=== PATIENT | female | born 1950 | race Caucasian/White ===

== ENCOUNTER → 2023-09-21 | Outpatient (CLI) | payer MEDICARE, OTHER, SELFPAY ==
--- NOTE | 2023-09-20 | IMM_PTH ---
PATIENT: BERNARDO BLEVINS LOC: [facility] U#:[id number] AGE/SX: 72/F ROOM: RE09/21/[address]: Dr. Spenser Cobb MD : 1950 BED: DIS: 09/21/2023 SPEC #: [id number] RECD: 09/22/23 14:54 STATUS: VANE REQ #: [id number] RAIZA: 09/20/23 00:[address]: Spenser Cobb DEPT: IMMUNOHISTOCHEMISTRY RECD BY: Lisa Stratton ENTERED: 09/22/23 14:58 SP TYPE: IMMUNO OTHR DR: Dr. Shruthi Melgoza MD Tissues: Right breast, NOS Procedures: CALPONIN-1 (add) CK5-6 (add) CK7 (add) CK8 (add) E-CAD (add) HER2 KEARA (add) KI-67 (add) P53 (add) NC (add) P40 (add) MOC-31 (add) ER (initial) PHYSICIAN & [address] [address] SPECIMEN INFORMATION: Tissue Source: Right breast Clinical Info: Right upper outer quadrant breast microcalcifications Specimen Number: [id number] #1 & 2 CPT code: 40582, 85179 x12, 54689 x3 METHODOLOGY: Deparaffinized sections of prefer/formalin-fixed tissue or PAP/DQ stained slides are incubated with monoclonal/polyclonal antibodies/oligonucleotide probes. Localization is made via biotin free immunoperoxidase method. Appropriate controls are performed and reacted as expected. Results on target cell population are indicated in the following table: RESULTS: ANTIBODY / CLONE RESULT Block 1 P53 (DO-7) negative, null pattern Ki-67 (30-9) positive, 5% CK8 (94nvovL02) positive CK5-6 (D5 & 1684) negative Calponin-1 (CB766Y) negative P40 (BC28) negative E-Cad (ECH-6) positive MOC-31 (4561) negative MORPHOMETRIC ANALYSIS ER (clone 6F11) >95%, strong intensity NC (clone 16/1E2) 0% Her-2Neu (clone CB11) 0 Block 2 CK8 (94yfwzQ78) positive CK7 (OV-TL12/30) positive Calponin-1 (JC188K) negative P40 (BC28) negative E-Cad (ECH-6) positive The prognostic test for HER2 is performed on formalin-fixed paraffin embedded tissue. A 3+ (positive) staining pattern is defined as intense, homogeneous, complete, circumferential membranous staining in >10% of contiguous tumor cells. A similar weak (2+) staining pattern is interpreted as equivocal. ETELVINA follow-up testing is recommended for all equivocal cases. Positivity/negativity for ER/NC is reported if > or < 1% of the tumor cells are immuno- reactive, respectively. The ASCO/CAP criteria is used for scoring. Reference: Journal of Clinical Oncology, 2013; 31:7394-7487 & 2010; 16:7900-5029. Ischemic time: Less than one hour. Duration of fixation: 9.5 Hrs; Sample Adequate: Yes. These assays have not been validated on decalcified tissues. Results should be interpreted with caution given the likelihood of false negativity on decalcified specimens or fixation greater than 72 hours. Alternative testing methods (FISH/dualISH for Her2; gene expression for ER) are recommended, if applicable. Please notify the laboratory if additional testing is required. These tests were developed and their performance characteristics determined by [facility]. They may not have been cleared or approved by the U.S. Food and Drug Administration. The FDA has determined that such clearance or approval is not necessary. The above immunohistochemical/dualISH markers are ordered and reviewed by the Pathologist. INTERPRETATION: Right breast, upper outer quadrant, needle core biopsy: Invasive ductal carcinoma, nuclear grade 1. Positive for estrogen receptors (favorable prognostic indicator). Negative for progesterone receptors (unfavorable prognostic indicator). Negative for overexpression of WAD5kmb. AM:shereen 09/23/2023
--- NOTE | 2023-09-20 | BRBX_PTH ---
PATIENT: BERNARDO BLEVINS LOC: [facility] U#:[id number] AGE/SX: 72/F ROOM: RE09/21/[address]: Dr. Spenser Cobb MD : 1950 BED: DIS: 09/21/2023 SPEC #: [id number] RECD: 09/21/23 11:04 STATUS: VANE DOMENICA #: [id number] RAIZA: 09/20/23 00:[address]: Spenesr Cobb DEPT: SURGICAL PATHOLOGY RECD BY: Magalie Saez ENTERED: 09/21/23 11:06 SP TYPE: BREAST BX OTHR DR: Dr. Shruthi Melgoza MD Tissues: Right breast, NOS Procedures: Surgery Specimen Level IV HEADER OPERATION: Right stereotactic breast biopsy PRE-OP DIAGNOSIS: Right upper outer quadrant breast microcalcifications TISSUE SUBMITTED: Right breast core tissue MICROSCOPIC DIAGNOSIS Right breast, upper outer quadrant, needle core biopsy: Invasive ductal carcinoma with the following characteristics: Maximal length - 5.5 x 5.0 millimeters Nuclear grade - 1/2 Other findings - microcalcifications associated with invasive carcinoma, ductal carcinoma in situ. AM:shereen 09/22/2023 COMMENT Immunohistochemistry ([id number]) supports the above diagnosis. MICROSCOPIC DESCRIPTION Slides are reviewed. GROSS DESCRIPTION Received is one container labeled with the patient's name and not further designated. The specimen consists of multiple irregular and elongated fragments of yellow-lawrence soft tissue that in aggregate measure 5.0 x 3.5 x 0.2 cm. The specimen is totally submitted in two cassettes. / AM:shereen 09/21/2023 TC:0 Ischemic Time: 2 minutes Fixation Time: 9.5 hours CPT: 54459
--- NOTE | 2023-09-21 09:25 | HP.PCM_ITS ---
History and Physical Date of Admission: 09/21/23 Visit Reasons: NEEDLE CORE BIOPSY R BREAST Chief Complaint: needle core biopsy r breast Auto Radiator Mechanic Required: No Is patient in pain?: No Allergies ciprofloxacin [From Cipro] Allergy (Mild, Verified 09/21/23 08:54) rashPenicillins Allergy (Mild, Verified 09/21/23 08:54) rashtrazodone Allergy (Mild, Verified 09/21/23 08:54) Rashlevofloxacin [From Levaquin] Adverse Reaction (Mild, Verified 09/21/23 08:54) tendonitis Medications Lactobacillus acidophilus 10 mg PO DAILY 04/15/22 [History Confirmed 09/21/23] allopurinol 100 mg tablet 100 mg PO DAILY 04/15/22 [History Confirmed 09/21/23] aspirin 81 mg tablet,delayed release (Adult Aspirin Regimen) 81 mg PO DAILY 04/15/22 [History Confirmed 09/21/23] atorvastatin 20 mg tablet 20 mg PO DAILY 04/15/22 [History Confirmed 09/21/23] benzonatate 100 mg capsule 100 mg PO BID-TID PRN 04/15/22 [History Confirmed 09/21/23] budesonide 90 mcg/actuation breath activated powder inhaler (Pulmicort Flexhaler) 1 inh inhalation BID 04/15/22 [History Confirmed 09/21/23] bupropion HCl 300 mg 24 hr tablet, extended release 300 mg PO QAM 04/15/22 [History Confirmed 09/21/23] cefdinir 300 mg capsule 300 mg PO BID 04/15/22 [History Confirmed 09/21/23] estradiol 1 mg tablet 1 mg PO DAILY 04/15/22 [History Confirmed 09/21/23] fluticasone propionate 50 mcg/actuation nasal spray,suspension (Allergy Relief (fluticasone)) 1 spray intranasal BID 04/15/22 [History Confirmed 09/21/23] gemfibrozil 600 mg tablet 600 mg PO DAILY 04/15/22 [History Confirmed 09/21/23] hydroxyzine HCl 10 mg tablet 10 mg PO QHS 04/15/22 [History Confirmed 09/21/23] insulin glargine 100 unit/mL (3 mL) subcutaneous pen 20 unit subcut BID 04/15/22 [History Confirmed 09/21/23] losartan 100 mg-hydrochlorothiazide 25 mg tablet 1 tab PO DAILY 04/15/22 [History Confirmed 09/21/23] magnesium oxide 400 mg PO DAILY 04/15/22 [History Confirmed 09/21/23] melatonin 3 mg capsule 3 mg PO HS PRN 04/15/22 [History Confirmed 09/21/23] metformin 1,000 mg tablet 1,000 mg PO BIDWMEAL 04/15/22 [History Confirmed 09/21/23] montelukast 10 mg tablet 10 mg PO QHS 04/15/22 [History Confirmed 09/21/23] multivitamin 1 tab PO DAILY 04/15/22 [History Confirmed 09/21/23] nitrofurantoin monohydrate/macrocrystals 100 mg capsule (Macrobid) 100 mg PO DAILY 04/15/22 [History Confirmed 09/21/23] omeprazole 40 mg capsule,delayed release 40 mg PO BID 04/15/22 [History Confirmed 09/21/23] potassium chloride 10 mEq capsule,extended release 10 meq PO DAILY 04/15/22 [History Confirmed 09/21/23] PFSH Medical History Asthma Diabetes GERD (gastroesophageal reflux disease) Gout Hemorrhoids History of cystocele HTN (hypertension) Osteoarthritis Sleep apnea Surgical History History of appendectomy History of bowel resection History of carpal tunnel release History of cholecystectomy History of hysterectomy Family History (Updated 09/21/23 @ 08:40 by Zayra Tello LPN) Father Heart disease HypertensionMother CVA (cerebral vascular accident)Sister Thyroid disorder Hypertension Breast cancer right breast Cancer thyroid Social History Smoking Status: Former smoker alcohol intake: current details: occasional substance use type: does not use HPI HPI HPI: 72-year-old female. She contacted me as noted below regarding an abnormal mammogram BI-RADS 3 demonstrating a group of fine calcifications right breast 11 o'clock position middle depth. I have reviewed the images and felt that it was pertinent to proceed with a stereotactic needle core biopsy. A0. Her sister has stage III breast cancer in the right breast as well. The patient's been anxious that she has had multiple repeat mammograms following this area. Her interpretation at the [facility] August 16, 2023 suggest probably benign stable group of fine calcifications right breast 11 o'clock position middle depth. The patient is wanting a definitive answer My note of August 22, 2023 72-year-old female. She is asked me to review her current set of mammograms that were performed at the [facility]. Because of an abnormality identified she has been on a 6 monthly basis. As of August 16, 2023 a diagnostic right unilateral mammogram demonstrated BI-RADS 3 probably benign group of fine calcifications in the right breast 11 o'clock position middle depth. I have personally reviewed these images and on the cc view there is a suggestion of possible slight density in this area but this is not correlated on the MLO view. The patient has a very strong family history of breast cancer. Her sister is currently receiving chemotherapy for stage III disease. She has had multiple cousins from metastatic disease. She is wanting to be very proactive. She herself is not able to detect any focal masses. She has a remote history of breast abscess perinatally. I have assisted her with previous breast biopsy techniques albeit now slightly remotely. She has no additional current symptoms. On review of her images I recommend to her stereotactic needle core right breast biopsy using CC imaging. We will schedule procedure at her discretion. Spenser Cobb M.D., F.A.C.S [facility] General General: No weight change, appetite, fatigue, colon cancer, breast cancer or weakness HEENT HEENT: No difficulty swallowing, eye injury, eye surgery, swollen glands or hoarseness Endo Endocrine: Yes diabetes mellitus; No thyroid disease, thyroid cancer, Hair loss, heat intolerance or cold intolerance Skin Skin: No rash or changing moles Breast Breast: Yes right breast lump and abnormal mammogram Musc Musculoskeletal: Yes arthritis and gout; No back problems, rheumatoid arthritis or joint pain Cardio Cardiovascular: Yes high blood pressure; No murmur, pacemaker, heart disease, atrial fibrillation, heart attack, heart stent, palpitations, shortness of breat with exertion or chest pain Psych Psychiatric: No depression, anxiety or hearing voices Resp Respiratory: No shortness of breath, Yes sleep apnea, Yes cough, No COPD, Yes asthma, No emphysema and No wheezing Gastro Gastrointestinal: No abdominal pain, No nausea or vomiting, No diarrhea, No c onstipation, No blood in stool, Yes acid reflux, No hemorrhoids, No ulcers, No gallbladder problem and No black,tarry stools Erik Hematologic: No blood thinners, No blood disorders, No bleeding, No anemia and No blood clots Neuro Neurologic: No system reviewed and no additional complaints, except as documented, No as per HPI, No abnormal gait, No abnormal hearing, No abnormal movements, No abnormal speech, No behavioral changes, No burning sensations, No confusion, No convulsions, No disequilibrium, No dizziness, No localized weakness, No frequent falls, No headache(s), No lack of coordination, No loss of vision, No memory loss, No numbness, No other visual disturbances, No radicular pain, No restless legs, No sensory deficit, No syncope, Yes tingling (in feet), No tremor(s), No weakness and No other Exam Const General: cooperative, comfortable and no acute distress Chest Other: Right breast well-healed curvilinear incision upper mid to upper mid inner right breast. No focal mass. No nipple discharge. No axillary clavicular adenopathy Left breast structurally smaller than the right. No focal mass. No nipple discharge. No axillary clavicular neuropathy Assessment and Plan Assessment and Plan (1) Breast calcification, right: Status: Acute Plan: [facility] o'clock position right breast. She is aware of the technique, benefit, risk and alternatives. She has had an option to ask and have questions answered. She is scheduled to proceed later this morning. Copy: Dr. Shruthi Cobb M.D., F.A.C.S.
--- NOTE | 2023-09-21 09:58 | PCM.OPRPT ---
Report of Operation Date of Procedure: 09/21/23 Pre-Operative Diagnosis: Clustered microcalcifications 11 o'clock position right breast Post-Operative Diagnosis: Same Surgery/Procedure Performed:: Stereotactic needle core biopsy 11 o'clock position right breast Description of Surgical Findings:: Timeout informed consent was obtained. 72-year-old female was taken to the stereotactic room placed prone on the table the right breast was placed in the cc view of microcalcifications in question rapidly identified stereotactic images obtained digital information was obtained on the single target site target on power builder developer was selected replacing image 2 the breast was prepped with Betadine 1% lidocaine was used as a local anesthetic a total of 10 cc was used a small stab incision was created 8 gauge resolved needle was advanced to prefire depth prefire films were obtained demonstrating adequate localization the device was fired 6 cores were obtained specimen mammograms were obtained demonstrating 2 cores in particular had microcalcifications present a dumbbell marking clip was left at 12 o'clock position on fast view demonstrated dramatic diminution in the number of calcifications and good placement of the marking clip. She was released from the device. Pressure was held for hemostasis. Steri-Strip Telfa OpSite dressing applied. She was given activity and wound care instructions. The specimens were immediately transferred to formalin for analysis. Specimens cores. Drains none. Blood loss minimal. Spenser Cobb M.D., F.A.C.S. Surgeon: Spenser Cobb Type of Anesthesia: Local
== END | disposition home or self-care (01) ==
PROVIDERS: PCP Internal Medicine; Referring Provider Surgery; Visit Provider Surgery
DX: C50.411 Malignant neoplasm of upper-outer quadrant of right female breast (principal); E11.9 Type 2 diabetes mellitus without complications; Z87.891 Personal history of nicotine dependence; Z79.82 Long term (current) use of aspirin; Z79.899 Other long term (current) drug therapy; J45.909 Unspecified asthma, uncomplicated; I10 Essential (primary) hypertension; Z80.3 Family history of malignant neoplasm of breast
CPT/HCPCS: 19081; 81002; 88305; 88341; 88342; J7050

== ENCOUNTER 2023-10-03 08:42 | Day surgery (SDC) | payer MEDICARE, OTHER, SELFPAY ==
--- NOTE | 2023-10-03 | IMM_PTH ---
PATIENT: BERNARDO BLEVINS LOC: [facility] [place] U#:[id number] AGE/SX: 72/F ROOM: RE10/03/[address]: Dr. Spenser Cobb MD : 1950 BED: DIS: 10/03/2023 SPEC #: [id number] RECD: 10/06/23 14:43 STATUS: VANE REQ #: [id number] RAIZA: 10/03/23 00:[address]: Spenser Cobb DEPT: IMMUNOHISTOCHEMISTRY RECD BY: Lisa Stratton ENTERED: 10/06/23 14:47 SP TYPE: IMMUNO OTHR DR: Dr. Shruthi Melgoza MD Tissues: A - Axillary lymph node, NOS B - Right breast, NOS Procedures: CK8 (initial) SMA (add) CALPONIN-1 (add) CK8 (add) E-CAD (add) Pankeratin (add) P40 (add) PHYSICIAN & INSTITUTION [place] [address] SPECIMEN INFORMATION: Tissue Source: A - Right axillary lymph nodes, B - Right breast Clinical Info: Right breast calcification Specimen Number: [id number] A1-A7, B3 & B6 CPT code: 88881 x2, 73265 x18 METHODOLOGY: Deparaffinized sections of prefer/formalin-fixed tissue or PAP/DQ stained slides are incubated with monoclonal/polyclonal antibodies/oligonucleotide probes. Localization is made via biotin free immunoperoxidase method. Appropriate controls are performed and reacted as expected. Results on target cell population are indicated in the following table: RESULTS: ANTIBODY / CLONE RESULT Block A1 CK8 (91xygrH76) negative AE1-3 (AE1/AE3/PCK26) negative Block A2 CK8 (90dwriJ83) negative AE1-3 (AE1/AE3/PCK26) negative Block A3 CK8 (20lkegF80) negative AE1-3 (AE1/AE3/PCK26) negative Block A4 CK8 (79qujzE28) negative AE1-3 (AE1/AE3/PCK26) negative Block A5 CK8 (39sxjuO19) negative AE1-3 (AE1/AE3/PCK26) negative Block A6 CK8 (01mktfL91) negative AE1-3 (AE1/AE3/PCK26) negative Block A7 CK8 (86papyT50) negative AE1-3 (AE1/AE3/PCK26) negative Block B2 Calponin-1 (RL234M) negative P40 (BC28) negative Actin (1A4) negative CK8 (41jzmfZ02) positive Block B6 E-Cad (ECH-6) positive CK8 (56tkzkE12) positive These tests were developed and their performance characteristics determined by [facility]. They may not have been cleared or approved by the U.S. Food and Drug Administration. The FDA has determined that such clearance or approval is not necessary. The above immunohistochemical/dualISH markers are ordered and reviewed by the Pathologist. INTERPRETATION: A. Right axillary lymph nodes, excision: Three out of 3 lymph nodes negative for carcinoma. B. Right breast, lumpectomy: Invasive ductal carcinoma. Ductal carcinoma insitu.
--- NOTE | 2023-10-03 | AXNB_PTH ---
PATIENT: BERNARDO BLEVINS [place] [facility] [place][id number] AGE/SX: 72/F ROOM: RE10/03/[address]: Dr. Spenser Cobb MD : 1950 BED: DIS: 10/03/2023 SPEC #: [id number] RECD: 10/03/23 13:39 STATUS: VANE REQ #: [id number] RAIZA: 10/03/23 00:[address]: Spenser Cobb DEPT: SURGICAL PATHOLOGY RECD BY: Lisa Stratton ENTERED: 10/03/23 14:56 SP TYPE: AX NODE BX OTHR DR: Dr. Shruthi Melgoza MD Tissues: A - Axillary lymph node, NOS B - Right breast, NOS Procedures: Frozen Section (charge) Surgery Specimen Level IV Surgery Specimen Level V HEADER OPERATION: Stereotactic wire loc right breast, lumpectomy, sentinel node PRE-OP DIAGNOSIS: Right breast calcification TISSUE SUBMITTED: A - Right breast axillary sentinel node, frozen section, B - Right breast cancer, long suture - lateral, short suture - superior, wire - anterior FROZEN SECTION DIAGNOSIS A. Right axillary lymph nodes, biopsy: Three out of three lymph nodes negative for carcinoma. AM:shereen 10/03/2023 MICROSCOPIC DIAGNOSIS A. Right axillary sentinel lymph nodes, excision: Three out of three lymph nodes negative for metastatic carcinoma. B. Right breast, lumpectomy: Invasive ductal carcinoma. See synoptic report below. AM:shereen 10/06/2023 COMMENT B. INVASIVE BREAST CANCER SUMMARY: Procedure - excision with wire guidance Specimen: Type - partial breast Size - 6.0 x 5.0 x 1.5 cm Laterality - right breast Tumor: Site - not specified Size - 2.5 x 1.5 millimeters (from glass slides) Histologic type - invasive ductal carcinoma. Focality - single focus of carcinoma. Histologic Grade (Daniel grade): Glandular/tubular differentiation - score 1 Nuclear pleomorphism - score 2 Mitotic count - score 1 Overall grade - 1 (score of 4) Ductal carcinoma in situ: Present Estimated quantification (% of tumor volume) - 1.0 x 1.0 millimeters Number of blocks - 1 of 10 blocks Architectural patterns - cribriform Nuclear grade - grade 1/3 Necrosis - not identified Lobular carcinoma in situ (LCIS): Not present Tumor extension: Skin - not applicable Nipple - not applicable Skeletal muscle - not present Margins: Distance of invasive carcinoma from closest margin - 5.0 mm from anterior margin. Distance of in situ carcinoma from closest margin - 7.0 mm from anterior margin. Lymph nodes: Number of sentinel lymph nodes examined - 3 Total number of lymph nodes examined (sentinel and non-sentinel) - 4 No evidence of macrometastases, micrometastases or isolated tumor cells. See specimen A. Treatment effect: Unknown Lymphvascular invasion - not identified Additional pathologic findings - intraductal hyperplasia with focal atypical intraductal hyperplasia, fibrocystic change and microcalcifications. Biopsy cavity with associated reactive changes Ancillary studies - previously performed on section of tumor ([id number] / [id number]). ER - positive (>95%, strong intensity) MT - negative (0%) Her2 shelby - negative (0) Her2 by dual ETELVINA - not performed Microcalcifications - present in non-neoplastic breast tissue. Clinical history - Mass of breast. PATHOLOGIC STAGE: pT1 N0 Mx The above summary is in compliance with [employer] [employer] (CAP) Cancer Protocols Checklist and [place] Joint Committee on Cancer (AJCC), Staging Manual, 8th Ed. A single intraparenchymal lymph node is identified. This lymph node is negative for metastatic carcinoma. Immunohistochemistry ([id number]) supports the above diagnosis. Reference is made to the patient's previous ([id number]) in which invasive ductal carcinoma was identified. MICROSCOPIC DESCRIPTION Slides are reviewed. GROSS DESCRIPTION A - Received fresh for frozen section consultation labeled with the patient's name is a specimen designated right breast axillary sentinel lymph nodes. The specimen consists of an irregular fragment of lawrence-yellow fibrofatty tissue measuring 7.5 x 4.0 x 1.0 cm. Serial sections reveal three lawrence nodules ranging in size from 2.0 to 4.0 cm in greatest dimension. The nodules are submitted in their entirety for frozen section consultation as follows: 1 - one nodule, 2 & 3 - one nodule, bisected, 4-7 - one nodule, serially sectioned. / AM:shereen 10/03/2023 B - Received fresh for OR consultation labeled with the patient's name is a specimen designated right breast lumpectomy. The specimen consists of an oriented fragment of lawrence-yellow fatty tissue measuring 6.0 x 5.0 x 1.5 cm and weighing 23.7 gm. The specimen is inked as follows: anterior - yellow, posterior - black, superior - blue, inferior - green, medial - red and lateral - orange. Serial sections reveal a blood filled biopsy cavity measuring 1.7 x 1.5 x 1.0 cm and located at 0.5 cm from its closest (anterior) margin of?excision. The proximity of the biopsy cavity to the closest margin is conveyed to the surgeon intraoperatively. Packaging Coordinator sections are submitted in ten cassettes as follows: 1 & 2 - perpendicular inked margins, 3-5 - biopsy cavity, 6-10 - sales and service representative sections of breast parenchyma adjacent to and away from biopsy cavity. Note, tissue is submitted after additional fixation. / AM:shereen 10/04/2023 TC:0 CPT: 40576, 15788, 04499
--- NOTE | 2023-10-03 08:46 | RAD_ITS ---
INDICATION: PRE OP EXAMINATION/TECHNIQUE: X-RAY - XR Chest 2 Views COMPARISON: No relevant prior comparison study available FINDINGS: LINES/DEVICES: None. LUNGS: No consolidation, edema or effusion. No pneumothorax. MEDIASTINUM AND CARDIOVASCULAR STRUCTURES: Cardiac silhouette not enlarged. Central airways and mediastinal contour are unremarkable. BONES AND SOFT TISSUES: Unremarkable. RAD/Chest PA and Lateral IMPRESSION: No radiographic evidence of acute cardiopulmonary disease. Electronically Signed: Kylee Marin MD at 9:32 EST ,
--- NOTE | 2023-10-03 09:25 | EKG12_ITS ---
Test Reason : PRE OP Blood Pressure : / mmHG Vent. Rate : 079 BPM Atrial Rate : 079 BPM P-R Int : 160 ms QRS Dur : 088 ms QT Int : 368 ms P-R-T Axes : 061 004 051 degrees QTc Int : 421 ms Normal sinus rhythm Normal ECG When compared with ECG of 29-MAY-2009 09:52, No significant change was found Confirmed by KAYLEN MEHTA, KATHY ([id number]), online content editor JASPAL MUNSON ([id number]) on 10/04/2023 1:20:00 PM Referred By: Spenser Cobb Confirmed By:KATHY ABDULLAHI MD
[2023-10-03 09:45] VITALS: BP 169/83; PULSE 77; RESP 16; TEMP 36.2; O2SAT 98; BMI 26.5
[2023-10-03] MEDS: Lactated Ringers 1,000 ML 15 ML IV (09:56)
[2023-10-03 10:09] LABS: Hematocrit 32.8 % (37-47); Hemoglobin 10.6 g/dL (12.0-15.0); Mean Corp Hgb Conc 32.3 g/dL (32-36); Mean Corpuscular Hgb 27.6 pg (27.0-32.0); Mean Corpuscular Volume 85.4 fL (81-99); Mean Platelet Vol. 10.4 fl (6.2-12.0); Platelet Count 410 K/mm3 (150-450); RBC Distribution Width CV 13.7 % (11.6-14.6); RBC Distribution Width SD 42.4 fl (35.1-43.9); Red Blood Count 3.84 M/mm3 (4.2-5.4); White Blood Count 9.3 K/mm3 (4.4-11.0)
[2023-10-03 10:54] LABS: Bedside Glucose 181 mg/dL (74-106)
[2023-10-03 10:58] LABS: ALB/GLOB Ratio 1.1 RATIO (0.9-2.4); AST(SGOT) 36 U/L (15-37); Alanine Aminotransfer ALT/SGPT 33 U/L (13-56); Albumin, Serum 3.8 g/dL (3.2-5.0); Alkaline Phosphatase 96 U/L (45-117); Anion Gap 6 (5-15); BUN 18 mg/dL (7-18); Calcium,Total 9.6 mg/dL (8.5-10.1); Chloride 111 mmol/L (98-107); Creatinine, Serum 0.95 mg/dL (0.55-1.02); EST Glomerular Filtration Rate 61 mL/min (>60); Est Glom Filt Rate - Afr Amer 74 mL/min (>60); Estimated Creatinine Clearance 43.63 ml/min; Globulin 3.4 g/dL (2.2-4.2); Glucose 190 mg/dL (74-106); Potassium 4.3 mmol/L (3.5-5.1); Protein, Total 7.2 g/dL (6.4-8.2); Sodium Level 137 mmol/L (136-145)
--- NOTE | 2023-10-03 11:00 | NM_ITS ---
PROCEDURE: NUCLEAR MEDICINE Injection Battiest Node - RIGHT breast(s). REASON FOR EXAM: Female, 72 years old. Right breast cancer. TECHNIQUE: Battiest node localization using radionuclide methods of the RIGHT breast(s) was performed following subcutaneous administration of 1.1 mCi of of sulfur colloid Tc-99m. COMPARISON STUDIES : NM - None. CR - Not available for review at this time. CT - Not available for review at this time. MR - Not available for review at this time. US - Not available for review at this time. FINDINGS: 1.1 mCi of technetium labeled sulfur colloid was injected subcutaneously in 4 equal aliquots in the right periareolar region for sentinel node imaging. NM/Lymph Node Injection Only IMPRESSION: 1.1 mCi of technetium labeled sulfur colloid was injected subcutaneously in the right perihilar region for sentinel node imaging. Electronically Signed: Bill Bahena MD at 13:04 EST ,
--- NOTE | 2023-10-03 11:30 | BI_ITS ---
SURGICAL BREAST SPECIMEN RADIOGRAPH CLINICAL: Document presence of tissue clip marker in biopsy specimen. FINDINGS: Specimen shows presence of tissue clip marker. Electronically Signed: Bill Bahena MD at 15:29 EST , BI/Breast Biopsy Specimen IMPRESSION: undefined
--- NOTE | 2023-10-03 11:58 | PCM.HP.BLA ---
History and Physical Date of Admission: 10/03/23 Visit Reasons: DISCUSS SURGERY, BREAST CANCER Chief Complaint: Discuss surgery/breast cancer Injection Molder Required: No Accompanied by: Is patient in pain?: No Allergies ciprofloxacin [From Cipro] Allergy (Mild, Verified 09/23/23 15:16) rashPenicillins Allergy (Mild, Verified 09/23/23 15:16) rashtrazodone Allergy (Mild, Verified 09/23/23 15:16) Rashlevofloxacin [From Levaquin] Adverse Reaction (Mild, Verified 09/23/23 15:16) tendonitis Medications Lactobacillus acidophilus 10 mg PO DAILY 04/15/22 [History Confirmed 09/23/23] allopurinol 100 mg tablet 100 mg PO DAILY 04/15/22 [History Confirmed 09/23/23] aspirin 81 mg tablet,delayed release (Adult Aspirin Regimen) 81 mg PO DAILY 04/15/22 [History Confirmed 09/23/23] atorvastatin 20 mg tablet 20 mg PO DAILY 04/15/22 [History Confirmed 09/23/23] benzonatate 100 mg capsule 100 mg PO BID-TID PRN 04/15/22 [History Confirmed 09/23/23] budesonide 90 mcg/actuation breath activated powder inhaler (Pulmicort Flexhaler) 1 inh inhalation BID 04/15/22 [History Confirmed 09/23/23] bupropion HCl 300 mg 24 hr tablet, extended release 300 mg PO QAM 04/15/22 [History Confirmed 09/23/23] cefdinir 300 mg capsule 300 mg PO BID 04/15/22 [History Confirmed 09/23/23] estradiol 1 mg tablet 1 mg PO DAILY 04/15/22 [History Confirmed 09/23/23] fluticasone propionate 50 mcg/actuation nasal spray,suspension (Allergy Relief (fluticasone)) 1 spray intranasal BID 04/15/22 [History Confirmed 09/23/23] gemfibrozil 600 mg tablet 600 mg PO DAILY 04/15/22 [History Confirmed 09/23/23] hydroxyzine HCl 10 mg tablet 10 mg PO QHS 04/15/22 [History Confirmed 09/23/23] insulin glargine 100 unit/mL (3 mL) subcutaneous pen 20 unit subcut BID 04/15/22 [History Confirmed 09/23/23] losartan 100 mg-hydrochlorothiazide 25 mg tablet 1 tab PO DAILY 04/15/22 [History Confirmed 09/23/23] magnesium oxide 400 mg PO DAILY 04/15/22 [History Confirmed 09/23/23] melatonin 3 mg capsule 3 mg PO HS PRN 04/15/22 [History Confirmed 09/23/23] metformin 1,000 mg tablet 1,000 mg PO BIDWMEAL 04/15/22 [History Confirmed 09/23/23] montelukast 10 mg tablet 10 mg PO QHS 04/15/22 [History Confirmed 09/23/23] multivitamin 1 tab PO DAILY 04/15/22 [History Confirmed 09/23/23] nitrofurantoin monohydrate/macrocrystals 100 mg capsule (Macrobid) 100 mg PO DAILY 04/15/22 [History Confirmed 09/23/23] omeprazole 40 mg capsule,delayed release 40 mg PO BID 04/15/22 [History Confirmed 09/23/23] potassium chloride 10 mEq capsule,extended release 10 meq PO DAILY 04/15/22 [History Confirmed 09/23/23] PFSH Medical History (Updated 09/23/23 @ 15:06 by Christy Mancilla) Asthma Breast calcification, right Breast cancer, right Diabetes GERD (gastroesophageal reflux disease) Gout Hemorrhoids History of cystocele HTN (hypertension) Osteoarthritis Sleep apnea Surgical History (Updated 09/23/23 @ 15:10 by Christy Mancilla) History of appendectomy History of bowel resection History of breast biopsy History of carpal tunnel release History of cholecystectomy History of hysterectomy Family History Father Heart disease HypertensionMother CVA (cerebral vascular accident)Sister Thyroid disorder Hypertension Breast cancer right breast Cancer thyroid Social History Smoking Status: Former smoker alcohol intake: current details: occasional substance use type: does not use HPI HPI HPI: 72-year-old female. She is status post a stereotactic needle core right breast biopsy 11 o'clock position on September 21, 2023 for microcalcifications. This had been interpreted at [facility] as BI-RADS Category 3 stable with follow-up images recommended. Pathology demonstrates invasive ductal carcinoma maximum length 5.5 mm nuclear grade 1 of 2 microcalcifications additionally associated with invasive carcinoma and ductal carcinoma in situ. Previous note reflects the following Chief Complaint: needle core biopsy r breast Injection Molder Required: No Is patient in pain?: No Allergies ciprofloxacin [From Cipro] Allergy (Mild, Verified 09/21/23 08:54) rashPenicillins Allergy (Mild, Verified 09/21/23 08:54) rashtrazodone Allergy (Mild, Verified 09/21/23 08:54) Rashlevofloxacin [From Levaquin] Adverse Reaction (Mild, Verified 09/21/23 08:54) tendonitis Medications Lactobacillus acidophilus 10 mg PO DAILY 04/15/22 [History Confirmed 09/21/23] allopurinol 100 mg tablet 100 mg PO DAILY 04/15/22 [History Confirmed 09/21/23] aspirin 81 mg tablet,delayed release (Adult Aspirin Regimen) 81 mg PO DAILY 04/15/22 [History Confirmed 09/21/23] atorvastatin 20 mg tablet 20 mg PO DAILY 04/15/22 [History Confirmed 09/21/23] benzonatate 100 mg capsule 100 mg PO BID-TID PRN 04/15/22 [History Confirmed 09/21/23] budesonide 90 mcg/actuation breath activated powder inhaler (Pulmicort Flexhaler) 1 inh inhalation BID 04/15/22 [History Confirmed 09/21/23] bupropion HCl 300 mg 24 hr tablet, extended release 300 mg PO QAM 04/15/22 [History Confirmed 09/21/23] cefdinir 300 mg capsule 300 mg PO BID 04/15/22 [History Confirmed 09/21/23] estradiol 1 mg tablet 1 mg PO DAILY 04/15/22 [History Confirmed 09/21/23] fluticasone propionate 50 mcg/actuation nasal spray,suspension (Allergy Relief (fluticasone)) 1 spray intranasal BID 04/15/22 [History Confirmed 09/21/23] gemfibrozil 600 mg tablet 600 mg PO DAILY 04/15/22 [History Confirmed 09/21/23] hydroxyzine HCl 10 mg tablet 10 mg PO QHS 04/15/22 [History Confirmed 09/21/23] insulin glargine 100 unit/mL (3 mL) subcutaneous pen 20 unit subcut BID 04/15/22 [History Confirmed 09/21/23] losartan 100 mg-hydrochlorothiazide 25 mg tablet 1 tab PO DAILY 04/15/22 [History Confirmed 09/21/23] magnesium oxide 400 mg PO DAILY 04/15/22 [History Confirmed 09/21/23] melatonin 3 mg capsule 3 mg PO HS PRN 04/15/22 [History Confirmed 09/21/23] metformin 1,000 mg tablet 1,000 mg PO BIDWMEAL 04/15/22 [History Confirmed 09/21/23] montelukast 10 mg tablet 10 mg PO QHS 04/15/22 [History Confirmed 09/21/23] multivitamin 1 tab PO DAILY 04/15/22 [History Confirmed 09/21/23] nitrofurantoin monohydrate/macrocrystals 100 mg capsule (Macrobid) 100 mg PO DAILY 04/15/22 [History Confirmed 09/21/23] omeprazole 40 mg capsule,delayed release 40 mg PO BID 04/15/22 [History Confirmed 09/21/23] potassium chloride 10 mEq capsule,extended release 10 meq PO DAILY 04/15/22 [History Confirmed 09/21/23] [facility] Medical History Asthma Diabetes GERD (gastroesophageal reflux disease) Gout Hemorrhoids History of cystocele HTN (hypertension) Osteoarthritis Sleep apnea Surgical History History of appendectomy History of bowel resection History of carpal tunnel release History of cholecystectomy History of hysterectomy Family History (Updated 09/21/23 @ 08:40 by Zayra Tello LPN) Father Heart disease HypertensionMother CVA (cerebral vascular accident)Sister Thyroid disorder Hypertension Breast cancer right breast Cancer thyroid Social History Smoking Status: Former smoker alcohol intake: current details: occasional substance use type: does not use HPI HPI HPI: 72-year-old female. She contacted me as noted below regarding an abnormal mammogram BI-RADS 3 demonstrating a group of fine calcifications right breast 11 o'clock position middle depth. I have reviewed the images and felt that it was pertinent to proceed with a stereotactic needle core biopsy. A0. Her sister has stage III breast cancer in the right breast as well. The patient's been anxious that she has had multiple repeat mammograms following this area. Her interpretation at the [facility] August 16, 2023 suggest probably benign stable group of fine calcifications right breast 11 o'clock position middle depth. The patient is wanting a definitive answer My note of August 22, 2023 72-year-old female. She is asked me to review her current set of mammograms that were performed at the [facility]. Because of an abnormality identified she has been on a 6 monthly basis. As of August 16, 2023 a diagnostic right unilateral mammogram demonstrated BI-RADS 3 probably benign group of fine calcifications in the right breast 11 o'clock position middle depth. I have personally reviewed these images and on the cc view there is a suggestion of possible slight density in this area but this is not correlated on the MLO view. The patient has a very strong family history of breast cancer. Her sister is currently receiving chemotherapy for stage III disease. She has had multiple cousins from metastatic disease. She is wanting to be very proactive. She herself is not able to detect any focal masses. She has a remote history of breast abscess perinatally. I have assisted her with previous breast biopsy techniques albeit now slightly remotely. She has no additional current symptoms. On review of her images I recommend to her stereotactic needle core right breast biopsy using CC imaging. We will schedule procedure at her discretion. Spenser Cobb M.D., F.A.C.S [facility] General General: No weight change, appetite, fatigue, colon cancer, breast cancer or weakness HEENT HEENT: No difficulty swallowing, eye injury, eye surgery, swollen glands or hoarseness Endo Endocrine: Yes diabetes mellitus; No thyroid disease, thyroid cancer, Hair loss, heat intolerance or cold intolerance Skin Skin: No rash or changing moles Breast Breast: Yes right breast lump and abnormal mammogram Musc Musculoskeletal: Yes arthritis and gout; No back problems, rheumatoid arthritis or joint pain Cardio Cardiovascular: Yes high blood pressure; No murmur, pacemaker, heart disease, atrial fibrillation, heart attack, heart stent, palpitations, shortness of breat with exertion or chest pain Psych Psychiatric: No depression, anxiety or hearing voices Resp Respiratory: No shortness of breath, Yes sleep apnea, Yes cough, No COPD, Yes asthma, No emphysema and No wheezing Gastro Gastrointestinal: No abdominal pain, No nausea or vomiting, No diarrhea, No constipation, No blood in stool, Yes acid reflux, No hemorrhoids, No ulcers, No gallbladder problem and No black,tarry stools Erik Hematologic: No blood thinners, No blood disorders, No bleeding, No anemia and No blood clots Neuro Neurologic: No system reviewed and no additional complaints, except as documented, No as per HPI, No abnormal gait, No abnormal hearing, No abnormal movements, No abnormal speech, No behavioral changes, No burning sensations, No confusion, No convulsions, No disequilibrium, No dizziness, No localized weakness, No frequent falls, No headache(s), No lack of coordination, No loss of vision, No memory loss, No numbness, No other visual disturbances, No radicular pain, No restless legs, No sensory deficit, No syncope, Yes tingling (in feet), No tremor(s), No weakness and No other Exam Const General: cooperative, comfortable and no acute distress Chest Other: Right breast well-healed curvilinear incision upper mid to upper mid inner right breast. No focal mass. No nipple discharge. No axillary clavicular adenopathy Left breast structurally smaller than the right. No focal mass. No nipple discharge. No axillary clavicular neuropathy Assessment and Plan Assessment and Plan (1) Breast calcification, right: Status: Acute Plan: I [facility] 11 o'clock position right breast. She is aware of the technique, benefit, risk and alternatives. She has had an option to ask and have questions answered. She is scheduled to proceed later this morning. Copy: Dr. Shruthi Cobb M.D., F.A.C.S. ROS General General: No weight change, appetite, fatigue, colon cancer, breast cancer or weakness HEENT HEENT: No difficulty swallowing, eye injury, eye surgery, swollen glands or hoarseness Endo Endocrine: Yes diabetes mellitus; No thyroid disease, thyroid cancer, Hair loss, heat intolerance or cold intolerance Skin Skin: No rash or changing moles Breast Breast: Yes right breast lump and abnormal mammogram Musc Musculoskeletal: Yes arthritis and gout; No back problems, rheumatoid arthritis or joint pain Cardio Cardiovascular: Yes high blood pressure; No murmur, pacemaker, heart disease, atrial fibrillation, heart attack, heart stent, palpitations, shortness of breat with exertion or chest pain Psych Psychiatric: No depression, anxiety or hearing voices Resp Respiratory: No shortness of breath, Yes sleep apnea, Yes cough, No COPD, Yes asthma, No emphysema and No wheezing Gastro Gastrointestinal: No abdominal pain, No nausea or vomiting, No diarrhea, No constipation, No blood in stool, Yes acid reflux, No hemorrhoids, No ulcers, No gallbladder problem and No black,tarry stools Erik Hematologic: No blood thinners, No blood disorders, No bleeding, No anemia and No blood clots Neuro Neurologic: No system reviewed and no additional complaints, except as documented, No as per HPI, No abnormal gait, No abnormal hearing, No abnormal movements, No abnormal speech, No behavioral changes, No burning sensations, No confusion, No convulsions, No disequilibrium, No dizziness, No localized weakness, No frequent falls, No headache(s), No lack of coordination, No loss of vision, No memory loss, No numbness, No other visual disturbances, No radicular pain, No restless legs, No sensory deficit, No syncope, Yes tingling (in feet), No tremor(s), No weakness and No other Exam Const General: cooperative, healthy appearing, comfortable and no acute distress HENMO Head: normal to inspection Eyes General: appearance normal, both eyes and all related structures Neck Neck: normal visual inspection Chest Other: Upper outer quadrant right breast healing core biopsy site with appropriate ecchymosis No focal masses bilaterally No axillary clavicular adenopathy Resp Effort & Inspection: normal respiratory effort Auscultation: clear to auscultation bilaterally Cardio Rate: regular rate Rhythm: regular rhythm GI Inspection: normal to inspection Musc Cervical Spine: normal cervical lordosis Skin General: no rashes or lesions noted Neuro General: patient alert, patient awake and patient oriented x3 Extrem General: no calf tenderness Psych Appearance: grossly normal Assessment and Plan Assessment and Plan (1) Breast cancer, right: Status: Acute Qualifiers: Breast location: upper outer quadrant of breast Plan: I recommended the patient breast conservation surgery. I propose for her stereotactic localization upper outer quadrant right breast with wire localized right breast lumpectomy and nuclear tracer and blue dye right axillary sentinel lymph node biopsy. We discussed technique, benefit, risk, alternatives. She has had an opportunity to ask and have questions answered. We are awaiting receptor levels. We will schedule procedure at her discretion. She is requesting Dr. Julio Duncan as her medical oncologist. Copy: Dr. Shruthi Cobb M.D., Lety. I have examined the patient and the H&P has been reviewed. There are no clinical changes since date of exam. Spenser Cobb M.D., F.Mine.Brian.S.
--- NOTE | 2023-10-03 12:19 | PCM.OPRPT ---
Problems Associated Problem List Diagnoses (1) Breast cancer, right: Report of Operation Date of Procedure: 10/03/23 Pre-Operative Diagnosis: Outer quadrant right breast invasive ductal carcinoma Post-Operative Diagnosis: Same Surgery/Procedure Performed:: Stereotactic wire localization upper outer quadrant right breast ductal carcinoma Nuclear tracer and blue dye right axillary sentinel lymph node biopsy Wire localized upper outer quadrant right breast partial mastectomy/lumpectomy Description of Surgical Findings:: Timeout and informed consent was obtained. 72-year-old female was taken to the stereotactic unit placed prone on the table the right breast was placed in a cc view the marking clip in question rapidly identified stereotactic images were obtained target on screen and cyclone repairer was selected replacing image to a single target site +15 mm was utilized. The breast was prepped with Betadine. 1 cc of 1% lidocaine was utilized as a local anesthetic. 20-gauge Kopan's needle was advanced to depth +15 mm. The wire was displaced. On fast view demonstrated good localization. Tape and gauze dressing applied. Follow-up medial lateral view was obtained demonstrating adequate localization. No apparent complication she was taken back to the holding area for then planned definitive transfer to the operating room. The patient was taken the operating placed upon the table and underwent general anesthesia. Soft roll was used to wrap the right arm which was placed at right angles to the table. The right breast was prepped with alcohol and then 2 cc of isosulfan blue dye was injected retroareolar massage was performed for 3 minutes. The right breast and axilla was sterilely prepped and draped. I made a slightly oblique transverse incision in the right axilla sharp and blunt dissection rapidly identified lymphatic blue dye tracking to on the large what appeared to be fibrofatty lymph node and a slight conglomerate. Nuclear tracer confirmed the same. I used electrocautery to perform circumferential dissection and where needed lymphatic channels were secured with small hemoclips. Electrocautery was used for hemostasis. The fibrofatty packet was removed with the blue dye staining. Nuclear tracer was confirmed. I then used the neoprobe and visualization and palpation and failed to identify any remaining hot or blue lymph nodes and no additional lymph nodes by palpation. Hemostasis was intact. A Ray-Lola was placed. Upper outer quadrant right breast a curvilinear incision was created sharp dissection carried down through the subtenons tissue electrocautery was used to perform circumferential dissection around the wire localized lump. Hemostasis was assured with electrocautery and interrupted 3-0 Vicryl sutures. At 4 corners of the resection hemoclips were placed. For the specimen a long suture was placed laterally a short suture superiorly and the wire exited anteriorly. It was sent for gross analysis. Frozen section revealed 3 sentinel lymph nodes negative for metastatic disease. The imaging of the lumpectomy specimen demonstrated the marking clip to be centrally located and margins were felt to be clear. Wounds were gently irrigated with saline. Hemostasis was intact. Each wound was closed in layers with deep layers of interrupted 3-0 Vicryl. Dermal Vicryl and then running subicular 4-0 Monocryl. The diamond-incisional and axillary anesthetized with 0.5% Marcaine a total of 30 cc was used. Steri-Strips Telfa OpSite bulky dry dressings with pressure dressings were applied. She tolerated the procedure well was taken to the recovery room in satisfied condition without apparent complication Synoptic Portion: Element Response Options Operation performed with curative intent. Yes Tracer(s) used to identify sentinel nodes in the upfront surgery (non-neoadjuvant) setting (select all that apply). Dye and radioactive tracer Tracer(s) used to identify sentinel nodes in the neoadjuvant setting (select all that apply). Not applicable All nodes (colored or non-colored) present at the end of a dye-filled lymphatic channel were removed. Yes All significantly radioactive nodes were removed. Yes All palpably suspicious nodes were removed. Yes Biopsy-proven positive nodes marked with clips prior to chemotherapy were identified and removed. Not applicable Surgeon: Spenser Cobb Type of Anesthesia: General and Local Anesthesiologist: Josemanuel Sanches
--- NOTE | 2023-10-03 12:22 | EX.PCM.DISCH ---
Discharge Instructions Procedure Breast Surgery Diet Discharge Diet: No restrictions Activity Discharge Activity: May Not Drive (for 2-3 days or while taking narcotic pain meds.) May shower in (days): 1 Lifting Restrictions: 10 pounds for 1 week. Dressing / Incision Call your doctor if your incision/area has: Continuous Slow Oozing and Sudden Increased Bleeding Call your doctor if you observe: Fever of 101 or Higher Suture Line Care: Avoid Pulling/Pushing and Avoid Pinching/Bending Remove Dressing in: 1 day Additional Dressing/Incision Instructions:: Remove bulky dressing tomorrow. May leave any opsite dressing for 3-4 days. Keep dressing in place until your follow-up appointment. You may resume your aspirin on Saturday, October 07, 2023 Follow Up Care Please Follow Up With: Spenser Cobb MD When: Please contact the office for follow-up in 1 week. [phone] Test Results: Test results from this visit will be discussed in further detail at your follow-up appointment, if applicable. Discharge Plan Admission Primary Reason for Your Visit: Right breast cancer Attending Provider: Spenser Cobb Primary Care Provider: Shruthi Melgoza Discharge Orders/Prescriptions Prescriptions: New oxycodone-acetaminophen [Percocet] 5-325 mg tablet 1 tab PO Q6H PRN (Reason: pain) 2 Days Qty: 8 0RF Continued insulin glargine 100 unit/mL (3 mL) insulin pen 20 unit subcut QHS allopurinol 100 mg tablet 100 mg PO DAILY metformin 1,000 mg tablet 1,000 mg PO BIDWMEAL atorvastatin 20 mg tablet 20 mg PO DAILY bupropion HCl 300 mg tablet extended release 24 hr 300 mg PO QAM omeprazole 40 mg capsule,delayed release(DR/EC) 40 mg PO QHS montelukast 10 mg tablet 10 mg PO QHS gemfibrozil 600 mg tablet 600 mg PO DAILY Pulmicort Flexhaler 90 mcg/actuation aerosol powdr breath activated 1 inh inhalation BID PRN (Reason: shortness of breath) melatonin 3 mg capsule 3 mg PO HS PRN (Reason: sleep) Lactobacillus acidophilus Capsule 10 mg PO DAILY magnesium oxide 400 mg magnesium capsule 400 mg PO DAILY fluticasone propionate [Allergy Relief (fluticasone)] 50 mcg/actuation spray,suspension 1 spray intranasal BID PRN (Reason: allergy symptoms) Rx Instructions: administer into each nostril multivitamin Tablet 1 tab PO DAILY aspirin [Adult Aspirin Regimen] 81 mg tablet,delayed release (DR/EC) 81 mg PO DAILY estradiol 10 mcg tablet 10 mcg VAGINAL .QOD insulin glargine [Basaglar KwikPen U-100 Insulin] 100 unit/mL (3 mL) insulin pen 24 unit subcut DAILY losartan 100 mg tablet 100 mg PO DAILY amiloride 5 mg tablet 5 mg PO DAILY insulin aspart U-100 [Novolog FlexPen U-100 Insulin] 100 unit/mL (3 mL) insulin pen 1 unit SUBCUT TID PRN (Reason: SLIDING SCALE) albuterol sulfate 90 mcg/actuation aerosol powdr breath activated 2 inh inhalation Q6H PRN (Reason: shortness of breath) Other Ambulatory Orders: Chest PA and Lateral (Routine) Timeframe: 20231003 Facility: [facility] - Location: [facility] Ordered By: Dr. Spenser Cobb Referrals / Follow Up: Shruthi Melgoza MD [Primary Care Provider] - Disposition Disposition (needs filled in before D/C Order can be placed): Home, Self Care
[2023-10-03] MEDS: Clindamycin 900 MG/50 ML BAG 75 MG IV (13:00)
[2023-10-03] MEDS: Isosulfan Blue 1% 5 ML Vial (13:08)
[2023-10-03] MEDS: Bupivacaine Mpf 0.5% 30 ML VIAL (14:03)
[2023-10-03 14:22] VITALS: BP 137/64; BP 169/83; PULSE 82; RESP 16; TEMP 37.3; O2SAT 97
[2023-10-03 14:38] VITALS: BP 136/72; BP 169/83; PULSE 85; RESP 16; O2SAT 96
[2023-10-03 14:45] VITALS: BP 136/69; BP 169/83; PULSE 85; RESP 16; TEMP 36.8; O2SAT 97
[2023-10-03] MEDS: oxyCODONE 5 MG Tablet PO (15:02)
[2023-10-03 15:09] LABS: Bedside Glucose 170 mg/dL (74-106)
[2023-10-03 15:53] VITALS: BP 136/68; BP 169/83; PULSE 74; RESP 16; TEMP 36.7; O2SAT 94
== END 2023-10-03 15:57 | disposition home or self-care (01) ==
LOC: SDC 08:47 → AC 08:47
PROVIDERS: PCP Internal Medicine; Referring Provider Surgery; Visit Provider Surgery
PROC: 0HBV0ZZ Excision of Bilateral Breast, Open Approach (ICD-10-PCS; CPT 19302; principal; 2023-10-03 13:00)
DX: C50.411 Malignant neoplasm of upper-outer quadrant of right female breast (principal); E11.9 Type 2 diabetes mellitus without complications; Z79.4 Long term (current) use of insulin; I10 Essential (primary) hypertension; E78.00 Pure hypercholesterolemia, unspecified; Z79.82 Long term (current) use of aspirin; Z79.84 Long term (current) use of oral hypoglycemic drugs; Z79.899 Other long term (current) drug therapy; Z87.891 Personal history of nicotine dependence; Z80.3 Family history of malignant neoplasm of breast
CPT/HCPCS: 19301; 38525; 19283; 00404; 19281; 38792; 71046; 76098; 80053; 82962; 85027; 88305; 88307; 88331; 88341; 88342; 93005; A4648; A9541; J7120; J2405; Q9968